=== PATIENT | female | born 1950 | race Caucasian/White ===

== ENCOUNTER 2018-12-15 08:45 | Observation (INO) | payer OTHER ==
--- NOTE | 2018-12-14 22:13 | PDGENHP ---
History and Physical History and Physical: Assessment and Plan: 1. Postmenopausal bleeding Dayan Arias has recurrent thickened endometrium with postmenopausal bleeding. Her pathology from her D&C was benign. Additionally she has stress urinary incontinence. We reviewed all conservative and surgical options. At the end of our discussion she wishes to proceed to surgical treatment which will include a robotic hysterectomy, BSO, and mid urethral sling. The risks benefits and alternatives were presented and informed consent was obtained. 2. JOIE (stress urinary incontinence, female) Juana has bothersome stress urinary incontinence. We reviewed conservative and surgical options. She would like to surgically repair the stress incontinence. We discussed that this would be a mid urethral sling. Subjective: Patient ID: Juana is a 68 y.o. female who presents to [facility] for hysterecomy consult. DAYRON Arias is a 68-year-old para 2 referred by Anusha Calderon NP for consult. She was recently diagnosed with a right breast malignant neoplasm and underwent a right breast lumpectomy in July 2018. She is currently taking anastrozole. She has a history of endometrial polyps and postmenopausal bleeding. She had a D&C in May 2018 for postmenopausal bleeding and endometrial polyps. In late September she had a repeat ultrasound that showed a 14 mm endometrium. She had no postmenopausal bleeding between the D&C and ultrasound. She did have some 2 weeks ago that has since resolved. Juana has been recommended to have a hysterectomy with another surgeon. In the meantime, she brought up that she is having stress incontinence. Therefore , Anusha recommended that she see Dr. Sims to consult whether she would be in a candidate for a mid urethral sling and if this can be done at the same time as a hysterectomy. She notes stress incontinence with coughing, laughing, sneezing. It was worse a few weeks ago when she had a cold but has improved a little bit, but is still bothersome. She denies urgency. She wakes up 1-2 times at night to urinate but does not wake up from the urge to urinate. She does not sleep well at night so she uses the bathroom when she is awake. She denies painful intercourse. She is getting ready to restart Estrace cream with testosterone which has been approved by both Anusha and her oncologist. She notes that she has seen a urologist previously which did a PVR which was normal. She denies difficulty emptying her bowel. Juana lives in [place]. If she is going to have surgery she needs a done by the end of February due to insurance reasons. CURRENT MEDICATIONS: Current Outpatient Medications Medication Sig anastrozole (ARIMIDEX) 1 mg tablet Take 1 tablet by mouth daily for cancer. Take with or without food. blue-green algae (SPIRULINA MISC) Take by mouth daily. CALCIUM GLUCONATE PO Take by mouth daily. cholecalciferol (VITAMIN D3) 1,000 unit tablet Take 5,000 Units by mouth daily. COLLAGEN MISC Take as instructed daily for POWDER. COMPOUNDED PRODUCT Product Name: Compounded Tablet Components/Strengths: Testosterone 2 mg Directions: estradiol (ESTRACE) 0.01 % (0.1 mg/gram) vaginal cream Place 2 g vaginally daily. KRILL OIL PO Take by mouth daily. Lactobacillus acidophilus (PROBIOTIC PO) Take by mouth daily. Magnesium 200 mg Tab Take 200 mg by mouth daily. psyllium seed, with dextrose, (FIBER PO) Take by mouth daily. RESVERATROL PO Thyroid, Pork, 65 mg Tab Take 65 mg by mouth daily. turmeric (CURCUMIN MISC) Take by mouth daily. UNABLE TO FIND Take by mouth daily. Med Name: OCUFORCE EYE VIT UNABLE TO FIND Take 5 mg by mouth daily. Med Name: *LITHIUM OROTATE UNABLE TO FIND Take 100 mg by mouth daily. Med Name: DIM DETOX VITAMIN B COMPLEX PO Take by mouth daily. No current facility-administered medications for this visit. ALLERGIES: Sulfa (sulfonamide antibiotics) I have reviewed, verified and agree with the past medical, surgical and history as documented by the RN today. Review of Systems Objective: Vital Signs: Visit Vitals BP 116/72 Pulse 79 Temp 36.8 C (98.2 F) (Temporal) Resp 16 Ht 1.651 m (5' 5") Wt 61.8 kg (136 lb 3.2 oz) SpO2 98% BMI 22.66 kg/m Physical Exam Constitutional: She is oriented to person, place, and time. She appears well- developed and well-nourished. Abdominal: Soft. There is no tenderness. Neurological: She is alert and oriented to person, place, and time. Skin: Skin is warm and dry. Psychiatric: She has a normal mood and affect. Her behavior is normal. Pelvic: Normal external genitalia. Grade 1 cystocele noted with Valsalva. No uterine prolapse. No rectocele noted. No obvious urinary leakage with cough or Valsalva. Uterus small, midline, nontender and no masses noted. Bilateral adnexa nontender, no masses. Procedures DATA: I have reviewed patient's outside medical records. Summary findings include EMB negative, endometrial thickness 17 mm TIME/COUNSELING: I personally spent a total of 60 minutes. Of that 50 minutes was counseling/ coordination of patient's care. See my note above for details.
[2018-12-15] MEDS ORDERED: ACETAMINOPHEN 500 MG TAB PO ONE (09:06)
[2018-12-15] MEDS ORDERED: GABAPENTIN 300 MG CAP PO ONE (09:06)
[2018-12-15] MEDS ORDERED: ceFAZolin 2 GM/DEXTROSE 100 ML IV ONE (09:06)
[2018-12-15] MEDS ORDERED: PHENAZOPYRIDINE HCL 200 MG TAB PO ONE (09:06)
[2018-12-15] MEDS ORDERED: LR 1,000 ML IV ONE (10:22)
[2018-12-15] MEDS ORDERED: BUPIVACAINE/EPI 0.5% 30 ML SDV ONE (10:32)
[2018-12-15] MEDS ORDERED: LIDOCAINE 2% 100 MG/5 ML SYR ONE (11:58)
[2018-12-15] MEDS ORDERED: SUGAMMADEX SODIUM 200 MG/2 ML VIAL IVP ONE (11:58)
[2018-12-15] MEDS ORDERED: DEXAMETHASONE 4 MG/ML VIAL ONE (11:58)
[2018-12-15] MEDS ORDERED: fentaNYL 250 MCG/5 ML INJ ONE (11:58)
[2018-12-15] MEDS ORDERED: KETOROLAC 30 MG/1 ML SDV ONE (11:58)
[2018-12-15] MEDS ORDERED: PHENYLEPHRINE HCL 100 MCG/ML SYR ONE (11:58)
[2018-12-15] MEDS ORDERED: PROPOFOL 200 MG/20 ML VIAL ONE (11:58)
[2018-12-15] MEDS ORDERED: ONDANSETRON 4 MG/2 ML VIAL ONE (11:58)
--- NOTE | 2018-12-15 12:34 | PDANEPAE ---
ANE History of Present Illness metromenorrhagia, here for robotic assist hysterectomy, cystoscopy ANE Past Medical History - Cardiovascular History Hx Hypertension: No Hx Arrhythmias: No Hx Chest Pain: No Hx Coronary Artery / Peripheral Vascular Disease: No Hx CHF / Valvular Disease: No Hx Palpitations: No Cardiovascular History Comment: RUNS LOW BP - Pulmonary History Hx COPD: No Hx Asthma/Reactive Airway Disease: No Hx Recent Upper Respiratory Infection: No Hx Oxygen in Use at Home: No Hx Sleep Apnea: No Sleep Apnea Screening Result - Last Documented: Negative - Neurologic History Hx Cerebrovascular Accident: No Hx Seizures: No Hx Dementia: No - Endocrine History Hx Diabetes: No Endocrine History Comment: HYPOTHYROID - Renal History Hx Renal Disorders: No Renal History Comment: HX UTIs NONE RECENT. KIDNEY INF IN PAST - Liver History Hx Hepatic Disorders: No - Neurological & Psychiatric Hx Hx Neurological and Psychiatric Disorders: No - Cancer History Hx Cancer: Yes Cancer History Comment: BREAST CA. BASAL CELL - Congenital Disorder History Hx Congenital Disorders: No - GI History Hx Gastrointestinal Disorders: Yes Gastrointestinal History Comment: OCCAS POSS IBS - Other Health History Other Health History: NONE - Chronic Pain History Chronic Pain: No - Surgical History Prior Surgeries: OVARIAN DERMOID TUMOR/OOPHERECTOMY. 2ND DERMOID TUMOR. C SECTION. LUMPECTOMY R ANE Review of Systems Review of Systems: - Exercise capacity METS (RN): 5 METS ANE Patient History - Allergies Allergies/Adverse Reactions: Sulfa (Sulfonamide Antibiotics) Allergy (Verified 12/15/18 09:22) Rash - Home Medications Home Medications: Estradiol [Estrace Vaginal (*)] 1 gail VG MOTH 11/30/18 [Last Taken Unknown] Ibuprofen [Motrin (*)] 200 mg PO DAILY PRN 11/30/18 [Last Taken Unknown] Nature Thyroid 65mg 65 mg PO DAILY 11/30/18 [Last Taken Unknown] Testosterone 2mg 2 mg PO DAILY 11/30/18 [Last Taken Unknown] Herbals/Supplements -Info Only 1 ea PO DAILY 12/01/18 [Last Taken Unknown] - NPO status NPO Since - Liquids (Date): 12/15/18 NPO Since - Liquids (Time): 08:30 NPO Since - Solids (Date): 12/14/18 NPO Since - Solids (Time): 19:30 - Smoking Hx Smoking Status: Never smoked - Family Anes Hx Family Hx Anesthesia Complications: NEG ANE Labs/Vital Signs - Vital Signs Blood Pressure: 97/72 Heart Rate: 76 Respiratory Rate: 16 O2 Sat (%): 96 Height: 165.1 cm Weight: 60.328 kg ANE Physical Exam - Airway Neck exam: FROM Mallampati Score: Class 1 Mouth exam: normal dental/mouth exam - Pulmonary Pulmonary: no respiratory distress, no rales or rhonchi - Cardiovascular Cardiovascular: regular rate and rhythym, no murmur, rub, or gallop - ASA Status ASA Status: II ANE Anesthesia Plan Anesthesia Plan: general endotracheal anesthesia Total IV Anesthesia: No
[2018-12-15] MEDS ORDERED: MIDAZOLAM 2 MG/2 ML VIAL IVP ONE (12:35)
[2018-12-15] MEDS ORDERED: SCOPOLAMINE HYDROBROMIDE 1 MG/3 DAYS PATCH TD SCH (12:45)
--- NOTE | 2018-12-15 12:58 | PDHPUP ---
History & Physical Update H&P update statement: This history and physical update is based on an assessment of the patient which was completed after admission or registration (within 24 hours), but prior to the surgery/procedure. H&P update: H&P reviewed & patient examined, no change in patient's condition since H&P completed
[2018-12-15] MEDS ORDERED: LR 500 ML IV PRN (14:32)
[2018-12-15] MEDS ORDERED: MEPERIDINE 25 MG/0.5 ML AMP IVP PRN (14:32)
[2018-12-15] MEDS ORDERED: oxyCODONE IR 5 MG TAB PO PRN (14:32)
[2018-12-15] MEDS ORDERED: NALOXONE HCL 0.4 MG/ML INJ IVP PRN (14:32)
[2018-12-15] MEDS ORDERED: DIAZEPAM 5 MG/ML 1 ML SYR IVP PRN (14:32)
[2018-12-15] MEDS ORDERED: PROMETHAZINE HCL 25 MG/ML INJ IVP PRN (14:32)
[2018-12-15] MEDS ORDERED: ONDANSETRON 4 MG/2 ML VIAL IVP PRN (14:38)
[2018-12-15] MEDS ORDERED: OXYCODONE/APAP 5/325 TAB PO PRN (14:38)
[2018-12-15] MEDS ORDERED: ONDANSETRON DISINTEGRATING 4 MG TAB PO PRN (14:38)
[2018-12-15] MEDS ORDERED: HYDROCODONE/APAP 5/325 TAB PO PRN (14:38)
[2018-12-15] MEDS ORDERED: HYDROmorphONE/DILAUDID 1 MG/ML INJ IVP PRN (14:38)
--- NOTE | 2018-12-15 14:38 | POSTOPPROG ---
Post Op Note Date of Operation: 12/15/18 Surgeon: Cesar Sims Flat Surfacer: Caridad Irwin Anesthesia: GET(General Endotracheal) Pre-op Diagnosis: Post menopausal bleeding, stress incontinence Post-op Diagnosis: Same plus endo, prolapse, adhesions Procedure: Robotic hyst/LSO, US Lig colpopexy, TOT, cysto Findings: endo Inf/Abcess present in the surg proc area at time of surgery?: No EBL: Minimal Complications: None
[2018-12-15] MEDS ORDERED: fentaNYL 100 MCG/2 ML INJ ONE (14:46)
[2018-12-15] MEDS ORDERED: DIAZEPAM 5 MG/ML 1 ML SYR ONE (14:47)
--- NOTE | 2018-12-15 14:48 | POSTANESTH ---
Post Anesthetic Evaluation Cardiovascular Status: Normal, Stable Respiratory Status: Normal, Stable Level of Consciousness/Mental Status: Can Participate in Eval, Mildly Sleepy, Arousable Pain Control: Adequate, Prn Tx Ordered Nausea/Vomiting Control: Adequate, Prn Tx Ordered Complications Possibly Related to Anesthesia: None Noted
[2018-12-15] MEDS: fentaNYL 100 MCG/2 ML INJ IVP PRN ×3 (14:51→15:29)
[2018-12-15] MEDS ORDERED: HYDROmorphONE/DILAUDID 1 MG/ML INJ ONE (14:55)
[2018-12-15] MEDS ORDERED: LR 1,000 ML IV SCH (15:00)
[2018-12-15] MEDS: HYDROmorphONE/DILAUDID 1 MG/ML INJ IVP PRN ×2 (15:14→15:37)
--- NOTE | 2018-12-15 15:20 | GOP ---
[f rep st] OPERATIVE REPORT DATE OF OPERATION: 12/15/2018 SURGEON: Cesar Sims MD PLATFORM SUPERVISOR: Caridad Irwin CFA. ANESTHESIA: General. PREOPERATIVE DIAGNOSIS: 1. Postmenopausal bleeding. 2. Uterine prolapse. 3. Stress urinary incontinence. POSTOPERATIVE DIAGNOSIS: 1. Postmenopausal bleeding. 2. Uterine prolapse. 3. Stress urinary incontinence. 4. Endometriosis and pelvic adhesions. PROCEDURE PERFORMED: 1. Robotic-assisted laparoscopic hysterectomy with left salpingo-oophorectomy. 2. Bilateral ureterolysis. 3. Excision of endometriosis. 4. Excision of rectal lesion. 5. Uterosacral ligament colpopexy. 6. Transobturator sling. 7. Cystoscopy. FINDINGS: SPECIMENS: 1. Uterus, left tube, and ovary. 2. Peritoneum with endometriosis. 1. Rectal lesion. 3. ESTIMATED BLOOD LOSS: 20 mL. DESCRIPTION OF PROCEDURE: The patient was taken to the operating room. She was identified. General anesthesia was administered and found to be adequate. She was placed in the lithotomy position, and prepared and draped in the normal sterile fashion. A VCare uterine manipulator was placed into the endometrial cavity and sutured to the cervix. A Arias catheter was then placed. An 8 mm infraumbilical incision was made with a scalpel. The Veress needle with CO2 gas flowing was advanced into the peritoneal cavity. The abdomen was then insufflated with carbon dioxide gas. The 8 mm trocar followed by the laparoscope was then inserted. The upper abdomen was unremarkable. Two lateral ports were placed in the right and 1 on the left under direct visualization. She then was pl aced in Trendelenburg position and the da Yara robot docked on the left side. Instruments were then brought into the abdominal cavity under direct visualization. Within the pelvis, there were multipl e areas of adhesions from endometriosis. The rectum was adherent to the posterior cervix and left ad nexa. The adhesions were taken down sharply. The rectum was dissected off the adnexa and posterior cervix. The nodule was excised from the rectum with the scissors. This extended into the muscularis. The left round ligament was divided. The anterior leaf of the broad ligament was incised towards the bif urcation of the left common iliac vessels. The patient required a bilateral ureterolysis given the a dhesions, distorted anatomy, and endometriosis overlying the pelvic sidewalls. The peritoneum over t he pelvic brims was incised. The ureters were gently dissected free, and lateralized off the overlyi ng peritoneum and endometriosis. Once this was accomplished, the pelvic sidewall peritoneum was exci sed. The left infundibulopelvic vessels were then transected. The anterior leaf of the broad ligame nt was then incised across the cervix, and the bladder dissected off the cervix and upper vagina. Th e uterine vasculature was then clamped, cut, and divided bilaterally. A circumferential colpotomy in cision was then made with the hot grant, and all specimens were removed through the vagina. The vag inal cuff was closed with a running suture of 0 V-Loc 180. A bilateral uterosacral ligament colpopex y was performed by attaching the lateral aspects of the vaginal cuff to the ipsilateral uterosacral l igaments near the level of the coccygeal/sacrospinous ligament complexes. The pelvis was then copiou sly irrigated with sterile saline, and hemostasis was present. The robot was then undocked. The ski n was closed with 4-0 Monocryl. A midurethral incision was made with a scalpel. Tunnels were created bilaterally out towards the obt urator internus muscles. Skin incisions were made over the obturator notches. The Halo trocar was p laced through the left skin incision, and redirected around the ischial pubic rami and out through th e vaginal incision using a vaginal finger as a guide. The sling was then attached and brought out al hay the same course. The exact same procedure was performed on the patient's right side. The sling was then adjusted to allow a small midurethral gap. The vagina cuff was closed with 2-0 Vicryl and 4 -0 Monocryl. Cystoscopy was then performed. Both ureters had vigorous jets of urine. There was no evidence of bl adder nor urethral injury seen. No suture or mesh was seen within the bladder nor urethra. No obvio us pathology was seen. Anesthesia was then reversed and the patient taken to the PACU awake, in stab le condition. COMPLICATIONS: None. DISPOSITION: Patient stable to PACU. /[id number]/MODL
[2018-12-15] MEDS ORDERED: OPIUM/BELLADONNA ALKALO SUPP PR ONE ×2 (15:46→16:00)
[2018-12-15] MEDS: SIMETHICONE 80 MG TAB CHEW PO SCH ×2 (20:13→20:40)
[2018-12-15] MEDS: DOCUSATE SODIUM 100 MG CAP PO SCH (20:40)
[2018-12-15] MEDS: KETOROLAC 15 MG/1 ML SDV IVP SCH (20:40)
[2018-12-15] MEDS: GABAPENTIN 100 MG CAP PO SCH ×2 (21:01→23:37)
[2018-12-16] MEDS: KETOROLAC 15 MG/1 ML SDV IVP SCH ×2 (04:17→08:07)
[2018-12-16 05:09] LABS: PLATELET COUNT 246 10^3/uL (150-400)
[2018-12-16] MEDS: DOCUSATE SODIUM 100 MG CAP PO SCH (08:06)
[2018-12-16] MEDS: SIMETHICONE 80 MG TAB CHEW PO SCH (08:06)
[2018-12-16] MEDS: GABAPENTIN 100 MG CAP PO SCH (08:06)
[2018-12-16 09:32] VITALS: BP 79/50
--- NOTE | 2018-12-16 10:33 | GDS ---
[f rep st] DISCHARGE SUMMARY DISCHARGE DIAGNOSES: 1. Postmenopausal bleeding. 2. Endometriosis. 3. Uterine prolapse. 4. Stress urinary incontinence. PROCEDURES: 1. Robotic-assisted total laparoscopic hysterectomy, left salpingo-oophorectomy. 2. Bilateral ureterolysis. 3. Excision of endometriosis. 4. Uterosacral ligament colpopexy. 5. Transobturator sling. HOSPITAL COURSE: The patient suffered from persistent postmenopausal bleeding. She was taken to the operating room on 12/15/2018 where she underwent the above-mentioned procedures without complication s. Her postoperative course was uneventful. The morning after surgery, she was ambulating, voiding, and tolerating a general diet. She was discharged home on postoperative day #1 in good condition. Medications, included Tylenol, ib uprofen, and [place] for pain. She is to follow up in the office 2 weeks after discharge. /[id number]/MODL
[2018-12-18] MEDS ORDERED: PATCH REMOVAL 1 EA PATCH TD SCH (12:35)
== END 2018-12-16 19:00 | disposition home or self-care (01) ==
LOC: F3N 08:56 → FOB 16:45
PROVIDERS: ADMIT Obstetrics & Gynecology; ATTEND Obstetrics & Gynecology
PROC: 0DBP4ZX Excision of Rectum, Percutaneous Endoscopic Approach, Diagnostic (ICD-10-PCS; principal; 2018-12-15 11:00)
PROC: 0UT94ZZ Resection of Uterus, Percutaneous Endoscopic Approach (ICD-10-PCS; principal; 2018-12-15 11:00)
PROC: 0DBW4ZZ Excision of Peritoneum, Percutaneous Endoscopic Approach (ICD-10-PCS; principal; 2018-12-15 11:00)
PROC: 0UTC4ZZ Resection of Cervix, Percutaneous Endoscopic Approach (ICD-10-PCS; principal; 2018-12-15 11:00)
PROC: 0UT64ZZ Resection of Left Fallopian Tube, Percutaneous Endoscopic Approach (ICD-10-PCS; principal; 2018-12-15 11:00)
PROC: 0USG4ZZ Reposition Vagina, Percutaneous Endoscopic Approach (ICD-10-PCS; principal; 2018-12-15 11:00)
PROC: 0UT14ZZ Resection of Left Ovary, Percutaneous Endoscopic Approach (ICD-10-PCS; principal; 2018-12-15 11:00)
PROC: 0TSD0ZZ Reposition Urethra, Open Approach (ICD-10-PCS; principal; 2018-12-15 11:00)
DX: N95.0 Postmenopausal bleeding (principal); N80.3 Endometriosis of pelvic peritoneum; N81.4 Uterovaginal prolapse, unspecified; N39.3 Stress incontinence (female) (male); E03.9 Hypothyroidism, unspecified
CPT/HCPCS: 57288; 57425; 58571; 58662; G0378; C1771; J0690; J1100; J1170; J1885; J2001; J2250; J2370; J2405; J2704; J3010; J3360